=== PATIENT | female | born 1950 | race Caucasian/White ===

== ENCOUNTER 2021-03-31 02:28 | Day surgery (SDC) | payer MEDICARE, SELFPAY ==
[2021-03-18 15:33] VITALS: BMI 36.8
[2021-03-31 06:59] VITALS: BP 140/76; PULSE 61; RESP 16; TEMP 36.1; O2SAT 99; BMI 36.2
[2021-03-31] MEDS: LACTATED RINGERS 1,000 ML 150 ML IV CONT (07:11)
--- NOTE | 2021-03-31 07:27 | PM.HPGS ---
History of Present Illness History of Present Illness Consent: Risks, benefits, and alternatives have been discussed and questions answered. Patient agrees to proceed with procedure. Chief complaint: Neoplasm Screening Narrative: Dianna Stafford is a 70 year old female referred for colon cancer screening Review of Systems Review of Systems: All systems reviewed & are unremarkable except as noted in HPI and below PMFSH Social History Social History Smoking status: Never smoker Alcohol intake: current Substance use: current Substance use type: marijuana Other substance usage details: MEDICAL FOR THC AND CBD- DAILY USE Living arrangements: with family Spiritual care concerns: No Meds Home Medications and Allergies Home Medications Medication Instructions Recorded Confirmed Type Black Cummin Seed Oil 2,000 mg PO DAILY 03/18/21 03/31/21 History acetaminophen [Tylenol Arthritis] 1,300 mg PO Q12H 03/18/21 03/31/21 History albuterol sulfate [Ventolin HFA] 1 puff INHALATION QID 03/18/21 03/31/21 History amlodipine 10 mg PO DAILY 03/18/21 03/31/21 History atorvastatin 10 mg PO DAILY 03/18/21 03/31/21 History cetirizine [Zyrtec] 10 mg PO DAILY 03/18/21 03/31/21 History cholecalciferol (vitamin D3) 100 mcg PO DAILY 03/18/21 03/31/21 History [Vitamin D3] cinnamon bark [Cinnamon] 500 mg PO DAILY 03/18/21 03/31/21 History famotidine 40 mg PO DAILY 03/18/21 03/31/21 History hydrochlorothiazide 12.5 mg PO DAILY 03/18/21 03/31/21 History multivit with min-folic acid 1 tablet PO DAILY 03/18/21 03/31/21 History [Adult One Daily Multivitamin] trazodone 100 mg PO HS 03/18/21 03/31/21 History turmeric 400 mg PO DAILY 03/18/21 03/31/21 History Allergies Allergy/AdvReac Type Severity Reaction Status Date / Time cefuroxime Allergy Severe Itching Verified 03/31/21 06:56 codeine Allergy Severe Anaphylactic Verified 03/31/21 06:56 Shock hydralazine Allergy Severe Anaphylactic Verified 03/31/21 06:56 Shock reserpine Allergy Severe Anaphylactic Verified 03/31/21 06:56 Shock hydrocodone Allergy Intermediate Nausea and Verified 03/31/21 06:56 Vomiting quinapril Allergy Intermediate Cough Verified 03/31/21 06:56 valsartan Allergy Intermediate Cough Verified 03/31/21 06:56 Vital Signs Vital Signs - 24 hr 03/31/21 06:59 Temperature 36.1 C L Pulse Rate 61 Respiratory Rate 16 Blood Pressure 140/76 Pulse Oximetry 99 Exam Resp: Auscultation: clear to auscultation bilaterally Cardio: Rate: regular rate Rhythm: regular rhythm GI: GI Palp: Yes Soft to palpation and No Tenderness to palpation present (GI) Assessment and Plan Assessment and plan (1) Colon cancer screening: Code(s): Z12.11 - Encounter for screening for malignant neoplasm of colon Status: Acute Assessment and Plan: Colonoscopy with possible biopsy or polypectomy or cautery or injection of substances.
--- NOTE | 2021-03-31 07:56 | P.PNAN_ITS ---
Anes - Initial Pre Proc Eval Procedure: Operation Date: 03/31/21 08:00 Proposed Procedures p Screening Colonoscopy - Joel Schulte MD Date/Time: 03/31/21 07:56 Surgeon: Joel Schulte MD Pre Op Diagnosis: Neoplasm Screening Patient Data Age: 70 Gender: F Height: 1.57 m Weight: 89.8 kg Last Vital Signs Temp 36.1 C L 03/31/21 06:59 Pulse 61 03/31/21 06:59 Resp 16 03/31/21 06:59 BP 140/76 03/31/21 06:59 Pulse Ox 99 03/31/21 06:59 Allergies Allergy/AdvReac Type Severity Reaction Status Date / Time cefuroxime Allergy Severe Itching Verified 03/31/21 06:56 codeine Allergy Severe Anaphylactic Verified 03/31/21 06:56 Shock hydralazine Allergy Severe Anaphylactic Verified 03/31/21 06:56 Shock reserpine Allergy Severe Anaphylactic Verified 03/31/21 06:56 Shock hydrocodone Allergy Intermediate Nausea and Verified 03/31/21 06:56 Vomiting quinapril Allergy Intermediate Cough Verified 03/31/21 06:56 valsartan Allergy Intermediate Cough Verified 03/31/21 06:56 Home Medications Medication Instructions Recorded Confirmed Type Black Cummin Seed Oil 2,000 mg PO DAILY 03/18/21 03/31/21 History acetaminophen [Tylenol Arthritis] 1,300 mg PO Q12H 03/18/21 03/31/21 History albuterol sulfate [Ventolin HFA] 1 puff INHALATION QID 03/18/21 03/31/21 History amlodipine 10 mg PO DAILY 03/18/21 03/31/21 History atorvastatin 10 mg PO DAILY 03/18/21 03/31/21 History cetirizine [Zyrtec] 10 mg PO DAILY 03/18/21 03/31/21 History cholecalciferol (vitamin D3) 100 mcg PO DAILY 03/18/21 03/31/21 History [Vitamin D3] cinnamon bark [Cinnamon] 500 mg PO DAILY 03/18/21 03/31/21 History famotidine 40 mg PO DAILY 03/18/21 03/31/21 History hydrochlorothiazide 12.5 mg PO DAILY 03/18/21 03/31/21 History multivit with min-folic acid 1 tablet PO DAILY 03/18/21 03/31/21 History [Adult One Daily Multivitamin] trazodone 100 mg PO HS 03/18/21 03/31/21 History turmeric 400 mg PO DAILY 03/18/21 03/31/21 History Patient hx anesthesia problems: none Family hx anesthesia problems: none [facility] Past Medical History Medical History (Updated 03/31/21 @ 07:58 by Herve Vu MD) CKD (chronic kidney disease) HTN (hypertension) Hyperlipidemia Obesity Social History Social History Smoking status: Never smoker Alcohol intake: current Substance use: current Substance use type: marijuana Other substance usage details: MEDICAL FOR THC AND CBD- DAILY USE Living arrangements: with family Spiritual care concerns: No Anes - Eval Final PreProcedure Day of Procedure 03/31/21 07:56 Patient weight: obese Heart: regular rate and rhythm Lungs: clear to auscultation and normal air movement Airway: Mallampati scale class II Neurological: alert and oriented Last oral intake: >/= 8 hours ASA classification: III Emergent: no Anesthetic plan: proceed Anesthesia type and monitoring: general GIVS Informed Consent: The patient's anesthetic plan and its attendant risks and benefits were discussed with the patient/family/POA. Questions were solicited and answers provided to the satisfaction of the patient/fami
[2021-03-31 08:37] VITALS: BP 109/57; PULSE 62; RESP 20; O2SAT 98
[2021-03-31 08:47] VITALS: BP 108/70; PULSE 60; RESP 22; O2SAT 100
[2021-03-31 08:57] VITALS: BP 133/71; PULSE 57; RESP 20; O2SAT 100
== END 2021-03-31 09:05 | disposition home or self-care (01) ==
PROVIDERS: Visit Provider Internal Medicine Gastroenterology
PROC: 0DJD8ZZ Inspection of Lower Intestinal Tract, Via Natural or Artificial Opening Endoscopic (ICD-10-PCS; CPT 45378; principal; 2021-03-31 08:00)
DX: Z12.11 Encounter for screening for malignant neoplasm of colon (principal); D12.4 Benign neoplasm of descending colon; K57.30 Diverticulosis of large intestine without perforation or abscess without bleeding; Z79.51 Long term (current) use of inhaled steroids; I12.9 Hypertensive chronic kidney disease with stage 1 through stage 4 chronic kidney disease, or unspecified chronic kidney disease; N18.9 Chronic kidney disease, unspecified; E78.5 Hyperlipidemia, unspecified; E66.9 Obesity, unspecified; Z68.36 Body mass index [BMI] 36.0-36.9, adult; F12.90 Cannabis use, unspecified, uncomplicated
CPT/HCPCS: 45385; 88305; J2704; J7120